=== PATIENT | male | born 1995 | race Two or more races ===

== ENCOUNTER 2022-09-02 10:36 | Emergency (ER) | payer SELFPAY ==
[~2022-09-02] VITALS: Ht 170.2 cm; Wt 118.2 kg
[2022-09-02] MEDS ORDERED: LORazepam 0.5 MG TAB PO ONE (14:45)
[2022-09-02] MEDS ORDERED: SODIUM CHLORIDE 0.9% 1,000 ML IV ONE ×2 (16:00→18:30)
[2022-09-02 16:17] LABS: Urine WBC None Seen /hpf (0 - 3)
[2022-09-02 16:21] LABS: Urine Bacteria NONE SEEN /hpf (None Seen); Urine Blood Negative /uL (Negative); Urine Mucus FEW (None Seen); Urine Specific Gravity 1.015 (1.001-1.035)
[2022-09-02 17:56] LABS: Basophils # (auto) 0 10 ^3/uL (0-0.2); Basophils % (auto) 0.2 % (0.0-2.0); Eosinophils # (auto) 0 10 ^3/uL (0-0.8); Hematocrit 45.3 % (41.0-53.0); Hemoglobin 16.2 g/dL (13.5-17.5); Lymphocytes # (auto) 1.5 10 ^3/uL (0.4-5.4); Lymphocytes % (auto) 15.2 % (10.0-50.0); Mean Corpuscular Hemoglobin 30.7 pg (28.0-32.0); Mean Corpuscular Hgb Conc. 35.8 g/dL (32.0-36.0); Mean Corpuscular Volume 85.8 fL (80.0-100.0); Monocytes # (auto) 0.4 10 ^3/uL (0-1.3); Monocytes % (auto) 4.3 % (0.0-12.0); Neutrophils # (auto) 8.2 10 ^3/uL (1.6-8.6); Neutrophils % (auto) 80.3 % (37.0-80.0); Nucleated Red Blood Cells % 0.5 %; Red Blood Cells 5.28 10^6/uL (4.5-5.90); Red Cell Distribution Width 13.5 % (11.8-14.3); White Blood Cell 10.2 10^3/uL (4.4-10.8)
[2022-09-02 17:57] LABS: Albumin 4.1 g/dL (3.4-5.0); BUN/Creatinine Ratio 10.7; Calcium 9.1 mg/dL (8.5-10.1); Magnesium 1.8 mg/dL (1.6-2.6)
[2022-09-02 17:59] LABS: Bilirubin, Total 0.6 mg/dL (0.2-1.0); Total Protein 7.2 g/dL (6.4-8.2)
[2022-09-02 18:02] LABS: Phosphorus 3.4 mg/dL (2.5-4.90)
[2022-09-02] MEDS ORDERED: ACETAMINOPHEN 500 MG TAB PO ONE (18:30)
[2022-09-02 19:48] VITALS: BP 157/103
== END 2022-09-02 20:30 | disposition home or self-care (01) ==
LOC: ER 10:36
DX: F41.9 Anxiety disorder, unspecified (principal); Z87.891 Personal history of nicotine dependence; Z91.018 Allergy to other foods
CPT/HCPCS: 36415; 71045; 80053; 81001; 82550; 83735; 84100; 84484; 85025; 85379; 96360; 99285; J7030